=== PATIENT | male | born 1965 | race African-American/Black ===

== ENCOUNTER 2019-05-01 08:47 | Emergency (ER) | payer SELFPAY ==
--- NOTE | 2019-05-01 09:04 | ER Document Report ---
ED General - General Chief Complaint: Low Blood Pressure Stated Complaint: BLOOD PRESSURE ISSUES Time Seen by Provider: 05/01/19 09:01 TRAVEL OUTSIDE OF THE [place] IN LAST 30 DAYS: No - HPI Notes: 54-year-old male with no pertinent mass medical history to the emergency department with complaints of an episode of dizziness, chest pain and near syncope yesterday. Patient states that he was with his family sightseeing in a car without air conditioning. He states he started to feel poorly and feel weak like he was going to pass out. Also reports during this episode that he had left-sided nonradiating chest pain that felt like acid reflux and also felt like he had a sore throat. Family called the medics and they came and an EKG and did orthostatics on him the patient states that his blood pressure got very low when he stood up and reports that it was 150 systolic. Medics encouraged patient to come to the hospital for further evaluation but patient declined. States after laying down for most of the day, he felt much better. States he woke up this morning and was getting ready to go to work and his son encouraged him to get checked out. States that he has no symptoms today. He denies any history of diabetes, hypertension, hyperlipidemia, heart attack, arrhythmias in himself. He states that he does not see a doctor. States there is a strong family history of hypertension in his family. Denies any leg swelling, recent extended travel, history of clots in his legs, recent immobilization, recent surgery, or any known familial coagulopathies. Past Medical History - General Information source: Patient, Relative - Social History Smoking Status: Never Smoker Frequency of alcohol use: Social Drug Abuse: None Lives with: Family Family History: Hypertension Review of Systems - Review of Systems Constitutional: denies: Chills, Fever EENT: No symptoms reported Cardiovascular: Chest pain, Dizziness, Lightheaded. denies: Palpitations, Heart racing, Orthopnea, Dyspnea, Syncope, Edema, Paroxysmal Nocturnal Dysp Respiratory: denies: Cough, Short of breath Gastrointestinal: denies: Abdominal pain, Diarrhea, Nausea Genitourinary: No symptoms reported Musculoskeletal: No symptoms reported Skin: No symptoms reported Hematologic/Lymphatic: No symptoms reported Neurological/Psychological: No symptoms reported -: Yes All other systems reviewed and negative Physical Exam - Vital signs Vitals: Temp Pulse Resp BP Pulse Ox 97.6 F 50 L 16 182/95 H 100 05/01/19 08:53 05/01/19 08:53 05/01/19 08:53 05/01/19 08:53 05/01/19 08:53 Interpretation: Bradycardic - General General appearance: Appears well, Alert - HEENT Head: Normocephalic, Atraumatic Eyes: Normal Pupils: PERRL - Respiratory Respiratory status: No respiratory distress Chest status: Nontender Breath sounds: Normal Chest palpation: Normal - Cardiovascular Rhythm: Regular Heart sounds: Normal auscultation Murmur: No - Abdominal Inspection: Normal Distension: No distension Bowel sounds: Normal Tenderness: Nontender Organomegaly: No organomegaly - Back Back: Normal, Nontender - Extremities General upper extremity: Normal inspection, Nontender, Normal color, Normal ROM, Normal temperature General lower extremity: Normal inspection, Nontender, Normal color, Normal ROM, Normal temperature, Normal weight bearing. No: Benson's sign - Neurological Neuro grossly intact: Yes Cognition: Normal Orientation: AAOx4 Sujata Coma Scale Eye Opening: Spontaneous [place] Coma Scale Verbal: Oriented [place] Coma Scale Motor: Obeys Commands Sujata Coma Scale Total: 15 Speech: Normal Cranial nerves: Normal. 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 Sensory: Normal - Psychological Associated symptoms: Normal affect, Normal mood - Skin Skin Temperature: Warm Skin Moisture: Dry Skin Color: Normal Course - Vital Signs Vital signs: Temp Pulse Resp BP Pulse Ox 97.6 F 50 L 16 182/95 H 100 05/01/19 08:53 05/01/19 08:53 05/01/19 08:53 05/01/19 08:53 05/01/19 08:53 - Laboratory Result Diagrams: 05/01/19 09:15 05/01/19 09:15 Laboratory results interpreted by me: 05/01/19 05/01/19 05/01/19 09:15 09:15 10:25 RBC 4.31 L Chloride 108 H Creatinine 1.28 H Est GFR (Non-Af Amer) 59 L Alkaline Phosphatase 35 L Creatine Kinase 225 H Urine Protein 30 H - EKG Interpretation by Me EKG shows normal: Sinus rhythm Rate: Bradycardia - HR of 44 Rhythm: NSR When compared to previous EKG there are: Previous EKG unavailable Additional EKG results interpreted by me: 05/01/19 09:29 No STEMI, no ST changes. Noted bradycardia. No prior HR or EKGs for comparison - Transfer of Care Notes: 05/01/19 11:02 Impression: Dizziness, elevated blood pressure, bradycardia. Patient with episode of dizziness yesterday and is completely asymptomatic today. Is not orthostatic. Most of his labs are very reassuring. Troponin is negative, electrolytes are within normal limits. EKG with no acute ischemic changes but is noted to be at 44 bpm. Patient does not know if he has had a history of low heart rate. He looks well today but we will have him follow with primary care and cardiology about blood pressure and bradycardia. I having encouraged him to return immediately if he has another episode like yesterday. He agrees with the plan. Discharge - Discharge Clinical Impression: Dizziness, Elevated blood pressure reading, Bradycardia Condition: Good Disposition: HOME, SELF-CARE Instructions: Dizziness ([facility]), High Blood Pressure ([facility]), [facility]aring [facility] Additional Instructions: FOLLOW UP WITH PRIMARY CARE AND WITH CARDIOLOGY WITHOUT FAIL THIS UPCOMING WEEK. RETURN IMMEDIATELY IF YOU HAVE ANOTHER EPISODE LIKE YESTERDAY. PUSH FLUIDS AND GET PLENTY OF REST. CARDIOLOGY FOLLOW UP: DR. JOMAR BECK [phone] [place] [address], [phone] Forms: Elevated Blood Pressure, Return to Work Referrals: JOMAR BECK MD [ACTIVE STAFF] - Follow up in 3-5 days [facility] [Provider Group] - Follow up in 3-5 days
[2019-05-01] MEDS ORDERED: NORMAL SALINE 1000 ML 1,000 ML IV ONE (09:22)
[2019-05-01 09:29] LABS: ABSOLUTE BASOPHILS # (AUTO) 0.1 10^3/uL (0.0-0.2); ABSOLUTE EOSINOPHILS # (AUTO) 0.3 10^3/uL (0.0-0.6); ABSOLUTE LYMPHOCYTES (AUTO) 2.5 10^3/uL (0.5-4.7); ABSOLUTE MONOCYTES (AUTO) 0.6 10^3/uL (0.1-1.4); ABSOLUTE NEUT (AUTO) 3.7 10^3/uL (1.7-8.2); EOSINOPHILS % (AUTO) 3.6 % (0-6); LYMPHOCYTES % (AUTO) 34.9 % (13-45); MEAN CORPUSCULAR HEMOGLOBIN 32.6 pg (27.0-33.4); MEAN CORPUSCULAR HGB CONC 33.5 g/dL (32.0-36.0); MEAN CORPUSCULAR VOLUME 97 fl (80-97); MONOCYTES % (AUTO) 8.8 % (3-13); PLATELET COUNT 263 10^3/uL (150-450); RED BLOOD COUNT 4.31 10^6/uL (4.35-5.55); SEGMENTED NEUTROPHILS % (AUTO) 51.7 % (42-78); TOTAL CELLS COUNTED % (AUTO) 100 %; WHITE BLOOD COUNT 7.1 10^3/uL (4.0-10.5)
[2019-05-01 09:47] LABS: ALANINE AMINOTRANSFERASE 26 U/L (21-72); ALBUMIN 4.4 g/dL (3.5-5.0); ALKALINE PHOSPHATASE 35 U/L (38-126); ANION GAP 6 (5-19); ASPARTATE AMINO TRANSFERASE 27 U/L (17-59); BILIRUBIN,DIRECT 0.2 mg/dL (0.0-0.4); BILIRUBIN,TOTAL 0.6 mg/dL (0.2-1.3); BLOOD UREA NITROGEN 20 mg/dL (7-20); CALCIUM 9.5 mg/dL (8.4-10.2); CARBON DIOXIDE 27 mmol/L (22-30); CHLORIDE 108 mmol/L (98-107); CREATINE KINASE 225 U/L (55-170); GLUCOSE 95 mg/dL (75-110); POTASSIUM 4.4 mmol/L (3.6-5.0); SODIUM 141.2 mmol/L (137-145); TOTAL PROTEIN 7.4 g/dL (6.3-8.2)
--- NOTE | 2019-05-01 10:11 | RADIOLOGY REPORT (SQ) ---
EXAM DESCRIPTION: CHEST 2 VIEWS COMPLETED DATE/TIME: 05/01/2019 9:57 am REASON FOR STUDY: chest pain, near syncope COMPARISON: None. EXAM PARAMETERS: NUMBER OF VIEWS: two views TECHNIQUE: Digital Frontal and Lateral radiographic views of the chest acquired. RADIATION DOSE: NA LIMITATIONS: none FINDINGS: LUNGS AND PLEURA: No opacities, masses or pneumothorax. No pleural effusion. MEDIASTINUM AND HILAR STRUCTURES: No masses or contour abnormalities. HEART AND VASCULAR STRUCTURES: Heart normal size. No evidence for failure. BONES: No acute findings. HARDWARE: None in the chest. OTHER: No other significant finding. IMPRESSION: NO ACUTE RADIOGRAPHIC FINDING IN THE CHEST. TECHNICAL DOCUMENTATION: JOB ID: [id number] [employer]- All Rights Reserved Reading location - IP/workstation name: [email or web address]
[2019-05-01 10:40] LABS: APPEARANCE,URINE CLEAR; BILIRUBIN,URINE NEGATIVE (NEGATIVE); COLOR,URINE YELLOW; GLUCOSE, URINE NEGATIVE (NEGATIVE); KETONES,URINE NEGATIVE (NEGATIVE); LEUKOCYTE ESTERASE,URINE NEGATIVE (NEGATIVE); NITRITE,URINE NEGATIVE (NEGATIVE); PROTEIN,URINE 30 mg/dL (NEGATIVE); URINE SPECIFIC GRAVITY 1.013; UROBILINOGEN,URINE NEGATIVE mg/dL (<2.0)
[2019-05-01 10:59] LABS: URINE AMPHETAMINES SCREEN NEGATIVE; URINE BARBITURATES SCREEN NEGATIVE; URINE BENZODIAZEPINES SCREEN NEGATIVE; URINE COCAINE SCREEN NEGATIVE; URINE MARIJUANA (THC) SCREEN UNCONFIRMED POSITIVE; URINE METHADONE SCREEN NEGATIVE; URINE PHENCYCLIDINE SCREEN NEGATIVE
[2019-05-01 11:43] VITALS: BP 166/91
--- NOTE | 2019-05-02 00:13 | EKG REPORT ---
SEVERITY:- OTHERWISE NORMAL ECG - SINUS BRADYCARDIA : Confirmed by: Jessica Castro 02-May-2019 00:12:35
== END 2019-05-01 11:42 | disposition home or self-care (01) ==
LOC: ER 08:47
DX: R42 Dizziness and giddiness (principal); R03.0 Elevated blood-pressure reading, without diagnosis of hypertension; R00.1 Bradycardia, unspecified; R07.9 Chest pain, unspecified; R53.1 Weakness
CPT/HCPCS: 93005; 99285; 96360; 96361; 36415; 82550; 83735; 85025; 80053; 81001; 84484; 80307; 71046; 93010; J7030

== ENCOUNTER 2019-05-07 21:19 | Inpatient (IN) | payer SELFPAY ==
[2019-05-07] MEDS ORDERED: NICARDIPINE HCL RTU, ISO-OS 20 MG/200 ML RTUINJ IV PRN (21:50)
--- NOTE | 2019-05-07 21:52 | ER Document Report ---
ED Neuro Symptoms/Deficit - General Chief Complaint: S/S of Possible Stroke Stated Complaint: POSSIBLE LEFT ARM NUMBNESS Time Seen by Provider: 05/07/19 21:48 Mode of Arrival: Ambulatory Information source: Patient TRAVEL OUTSIDE OF THE [place] IN LAST 30 DAYS: No - HPI Patient complains to provider of: Paresthesia, Weakness Onset: Other - 4 PM today Awoke with symptoms: No Duration: Better Quality of pain: No pain Severity: None Pain Level: Denies Context: None Loss of consciousness: No loss of consciousness Baseline Cognitive: Alert, oriented X 3 Baseline Gait: Walks w/o assistance Pre-existing weakness: Upper extremity Patient Orientation: Person, Place, Time New weakness: LUE Altered sensation: LUE Vision problem/glaucoma: No Associated symptoms: None Similar symptoms previously: No Recently seen / treated by doctor: Yes - Related Data Allergies/Adverse Reactions: No Known Allergies Allergy (Unverified 05/07/19 23:08) Past Medical History - Social History Smoking Status: Unknown if Ever Smoked Family History: Hypertension Renal/ Medical History: Denies: Hx Peritoneal Dialysis Review of Systems - Review of Systems Constitutional: No symptoms reported EENT: No symptoms reported Cardiovascular: No symptoms reported Respiratory: No symptoms reported Gastrointestinal: No symptoms reported Genitourinary: No symptoms reported Male Genitourinary: No symptoms reported Musculoskeletal: No symptoms reported Skin: No symptoms reported Hematologic/Lymphatic: No symptoms reported Neurological/Psychological: Weakness - Left upper extremity numbness and weakness of sudden onset., Numbness -: Yes All other systems reviewed and negative Physical Exam - Vital signs Vitals: Resp Pulse Ox 20 98 05/07/19 21:35 05/07/19 21:35 Interpretation: Normal - General General appearance: Appears well, Alert - HEENT Head: Normocephalic, Atraumatic Eyes: Normal Pupils: PERRL - Respiratory Respiratory status: No respiratory distress Chest status: Nontender Breath sounds: Normal Chest palpation: Normal - Cardiovascular Rhythm: Regular Heart sounds: Normal auscultation Murmur: No - Abdominal Inspection: Normal Distension: No distension Bowel sounds: Normal Tenderness: Nontender Organomegaly: No organomegaly - Back Back: Normal, Nontender - Extremities General upper extremity: Normal inspection, Nontender, Normal color, Normal ROM, Normal temperature General lower extremity: Normal inspection, Nontender, Normal color, Normal ROM, Normal temperature, Normal weight bearing. No: Benson's sign - Neurological Neuro grossly intact: Yes - NIHSS is zero. 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 No: Pronator drift, Weakness Sensory: Normal Notes: NIHSS = 0. - Psychological Associated symptoms: Normal affect, Normal mood - Skin Skin Temperature: Warm Skin Moisture: Dry Skin Color: Normal Course - Vital Signs Vital signs: Temp Pulse Resp BP Pulse Ox 97.5 F 53 L 16 148/91 H 98 05/08/19 04:15 05/08/19 04:15 05/08/19 04:15 05/08/19 04:15 05/08/19 04:15 - Laboratory Result Diagrams: 05/07/19 21:55 05/07/19 21:55 Laboratory results interpreted by me: 05/07/19 05/07/19 21:55 21:55 RBC 4.03 L Hgb 13.3 L BUN 21 H Creatinine 1.39 H Est GFR (Non-Af Amer) 53 L Glucose 69 L Alkaline Phosphatase 30 L Creatine Kinase 440 H - Diagnostic Test Radiology reviewed: Reports reviewed Radiology results interpreted by me: 05/07/19 23:[address] scan and chest x-ray were negative. - EKG Interpretation by Me EKG shows normal: Sinus rhythm Rate: Normal Rhythm: NSR When compared to previous EKG there are: Previous EKG unavailable Additional EKG results interpreted by me: 05/07/19 23:[address] changes no STEMI. Q waves are the inferior leads. - Transfer of Care Notes: 05/07/19 23:02 Patient will be admitted by Dr. Flores to the hospitalist on-call for further evaluation and management. Critical Care Note - Critical Care Note Total time excluding time spent on procedures (mins): 45 Comments: Time was spent assessing patient, multiple evaluations and consults. Also time was spent reviewing labs and imaging studies. Discharge - Discharge Clinical Impression: TIA (transient ischemic attack), ISAMAR (acute kidney injury) Hypertension Qualifiers: Hypertension type: unspecified Qualified Code(s): I10 - Essential (primary) hypertension Condition: Stable Disposition: ADMITTED INPATIENT Admitting Provider: Aj (Hospitalist) Unit Admitted: IMCU
[2019-05-07 22:03] LABS: ABSOLUTE BASOPHILS # (AUTO) 0.1 10^3/uL (0.0-0.2); ABSOLUTE EOSINOPHILS # (AUTO) 0.3 10^3/uL (0.0-0.6); ABSOLUTE LYMPHOCYTES (AUTO) 3.1 10^3/uL (0.5-4.7); ABSOLUTE MONOCYTES (AUTO) 0.8 10^3/uL (0.1-1.4); ABSOLUTE NEUT (AUTO) 3.8 10^3/uL (1.7-8.2); BASOPHILS % (AUTO) 0.7 % (0-2); EOSINOPHILS % (AUTO) 4.1 % (0-6); HEMATOCRIT 39.1 % (37.9-51.0); HEMOGLOBIN 13.3 g/dL (13.5-17.0); LYMPHOCYTES % (AUTO) 38.6 % (13-45); MEAN CORPUSCULAR VOLUME 97 fl (80-97); PLATELET COUNT 252 10^3/uL (150-450); RED BLOOD COUNT 4.03 10^6/uL (4.35-5.55); SEGMENTED NEUTROPHILS % (AUTO) 46.6 % (42-78); TOTAL CELLS COUNTED % (AUTO) 100 %; WHITE BLOOD COUNT 8.1 10^3/uL (4.0-10.5)
[2019-05-07 22:12] LABS: INTERNATIONAL RATION (INR) 0.97; PROTHROMBIN TIME 12.9 SEC (11.4-15.4)
[2019-05-07 22:13] LABS: PARTIAL THROMBOPLASTIN TIME 30.2 SEC (23.5-35.8)
--- NOTE | 2019-05-07 22:19 | RADIOLOGY REPORT (SQ) ---
EXAM DESCRIPTION: CT HEAD WITHOUT IV CONTRAST COMPLETED DATE/TME: 05/07/2019 00:00 CLINICAL HISTORY: 54 years, Male, left arm numbness COMPARISON: None. TECHNIQUE: Noncontrast CT of the head was performed. Coronal and sagittal reformations were created. Images stored on PACS. All CT scanners at this facility use dose modulation, iterative reconstruction, and/or weight based dosing when appropriate to reduce radiation dose to as low as reasonably achievable (ALARA). [facility]: Dose Right [facility]: CareDose [facility]: Dose Right [facility]: Teradose 4D [facility]: [employer] Technologies LIMITATIONS: None. FINDINGS: Brain parenchyma is normal in attenuation. Sella is partially empty. No acute intracranial hemorrhage, mass effect, or extra-axial fluid is seen. The ventricles, sulci, and basilar cisterns are normal in size and configuration. Globes and orbits are normal. Minimal rounded opacity is noted about the bilateral maxillary antra, indicating mucous retention cysts and/or inflammatory polyps. Paranasal sinuses and mastoid air cells are otherwise clear. There are no depressed skull fractures. IMPRESSION: No acute intracranial abnormality. TECHNICAL DOCUMENTATION: Quality ID # 436: Final reports with documentation of one or more dose reduction techniques (e.g., Automated exposure control, adjustment of the mA and/or kV according to patient size, use of iterative reconstruction technique) copyright 2011 [employer] All Rights Reserved
[2019-05-07 22:22] LABS: ALANINE AMINOTRANSFERASE 30 U/L (21-72); ALBUMIN 4.5 g/dL (3.5-5.0); ALKALINE PHOSPHATASE 30 U/L (38-126); ANION GAP 10 (5-19); ASPARTATE AMINO TRANSFERASE 35 U/L (17-59); BILIRUBIN,DIRECT 0.3 mg/dL (0.0-0.4); BILIRUBIN,TOTAL 0.8 mg/dL (0.2-1.3); BLOOD UREA NITROGEN 21 mg/dL (7-20); CALCIUM 9.7 mg/dL (8.4-10.2); CARBON DIOXIDE 24 mmol/L (22-30); CHLORIDE 107 mmol/L (98-107); CREATINE KINASE 440 U/L (55-170); POTASSIUM 4.5 mmol/L (3.6-5.0); SODIUM 140.6 mmol/L (137-145); TOTAL PROTEIN 7.5 g/dL (6.3-8.2)
[2019-05-07 22:25] LABS: GLUCOSE 69 mg/dL (75-110)
[2019-05-07 22:34] LABS: CREATINE KINASE MB 3.54 ng/mL (<4.55); TROPONIN I < 0.012 ng/mL
--- NOTE | 2019-05-07 22:36 | RADIOLOGY REPORT (SQ) ---
EXAM DESCRIPTION: [employer]: XR CHEST 1 VIEW CLINICAL HISTORY: 54 years Male, Left arm numbness and weakness COMPARISON: 05/01/2019 FINDINGS: Lungs are clear, with no focal infiltrate, pneumothorax, or pleural effusion. Mediastinum is within normal limits for this positioning. Bony structures are unremarkable. IMPRESSION: 1. No acute pulmonary findings.
[2019-05-07] MEDS ORDERED: NORMAL SALINE 1000 ML 1,000 ML IV ONE ×2 (22:46→23:43)
[2019-05-07] MEDS ORDERED: AMLODIPINE BESYLATE 5 MG TABLET PO ONE (22:53)
[2019-05-07] MEDS ORDERED: ASPIRIN 325 MG TABLET, ENT COATED PO ONE (23:04)
[2019-05-07] MEDS ORDERED: ASPIRIN 325 MG TABLET PO ONE (23:15)
[2019-05-07] MEDS ORDERED: ATORVASTATIN CALCIUM 80 MG TABLET PO ONE (23:15)
[2019-05-07] MEDS ORDERED: ACETAMINOPHEN 325 MG TABLET PO PRN (23:38)
[2019-05-07] MEDS ORDERED: MAGNESIUM HYDROXIDE SUSP 30 ML UDCUP PO PRN (23:38)
[2019-05-07] MEDS ORDERED: DOCUSATE SODIUM 100 MG CAPSULE PO PRN (23:38)
[2019-05-08 03:05] LABS: URINE AMPHETAMINES SCREEN NEGATIVE; URINE BARBITURATES SCREEN NEGATIVE; URINE BENZODIAZEPINES SCREEN NEGATIVE; URINE COCAINE SCREEN NEGATIVE; URINE MARIJUANA (THC) SCREEN UNCONFIRMED POSITIVE; URINE METHADONE SCREEN NEGATIVE; URINE PHENCYCLIDINE SCREEN NEGATIVE
[2019-05-08 06:15] LABS: CHOLESTEROL 228.15 mg/dL (0-200); TRIGLYCERIDES 93 mg/dL (<150)
[2019-05-08 06:26] LABS: DIRECT LDL 147 mg/dL (<100)
--- NOTE | 2019-05-08 06:38 | PDOC H&P ---
History of Present Illness Admission Date/PCP: 05/07/19 23:13 Patient complains of: Left hand weakness History of Present Illness: EZEKIEL WISE is a 54 year old male with a past medical history of hypertension without medication presents with acute onset of left hand weakness starting 90 minutes prior to arrival. Patient is greatly improved from onset wi th plus 4 out of 5 strength regained. He admits headache, palpitations, denies nausea vomiting blurred vision confusion or additional focal symptoms. He denies recent medications and is otherwise been well. He denies previous episode. His work-up was unremarkable and is referred to the hospitalist for admission. Past Medical History Cardiac Medical History: Reports: Hypertension Past Surgical History Past Surgical History: Reports: None Social History Information Source: Patient Lives with: Family Smoking Status: Unknown if Ever Smoked Frequency of Alcohol Use: None Hx Recreational Drug Use: No Drugs: None - Advance Directive Resuscitation Status: Full Code Family History Family History: CVA, Hypertension Parental Family History Reviewed: Yes Children Family History Reviewed: Yes Sibling(s) Family History Reviewed.: Yes Medication/Allergy Allergies/Adverse Reactions: No Known Allergies Allergy (Unverified 05/07/19 23:08) Review of Systems Constitutional: ABSENT: chills, fever(s), headache(s), weight gain, weight loss Eyes: ABSENT: visual disturbances Ears: ABSENT: hearing changes Cardiovascular: PRESENT: palpitations. ABSENT: chest pain, dyspnea on exertion, edema, orthropnea Respiratory: ABSENT: cough, hemoptysis Gastrointestinal: ABSENT: abdominal pain, constipation, diarrhea, hematemesis, hematochezia, nausea, vomiting Genitourinary: ABSENT: dysuria, hematuria Musculoskeletal: ABSENT: joint swelling Integumentary: ABSENT: rash, wounds Neurological: ABSENT: abnormal gait, abnormal speech, confusion, dizziness, focal weakness, syncope Psychiatric: ABSENT: anxiety, depression, homidical ideation, suicidal ideation Endocrine: ABSENT: cold intolerance, heat intolerance, polydipsia, polyuria Hematologic/Lymphatic: ABSENT: easy bleeding, easy bruising Physical Exam Vital Signs: Temp Pulse Resp BP Pulse Ox 97.5 F 53 L 16 148/91 H 98 05/08/19 04:15 05/08/19 04:15 05/08/19 04:15 05/08/19 04:15 05/08/19 04:15 Intake & Output 0705/07/19 05/08/19 11:59 11:59 11:59 Intake Total 1999 Balance 1999 Weight 93.6 kg General appearance: PRESENT: no acute distress, well-developed, well-nourished Head exam: PRESENT: atraumatic, normocephalic Eye exam: PRESENT: conjunctiva pink, EOMI, PERRLA. ABSENT: scleral icterus Ear exam: PRESENT: normal external ear exam Mouth exam: PRESENT: moist, tongue midline Neck exam: ABSENT: carotid bruit, JVD, lymphadenopathy, thyromegaly Respiratory exam: PRESENT: clear to auscultation samantha. ABSENT: rales, rhonchi, wheezes Cardiovascular exam: PRESENT: RRR. ABSENT: diastolic murmur, rubs, systolic murmur Pulses: PRESENT: normal dorsalis pedis pul Vascular exam: PRESENT: normal capillary refill GI/Abdominal exam: PRESENT: normal bowel sounds, soft. ABSENT: distended, guarding, mass, organolmegaly, rebound, tenderness Rectal exam: PRESENT: deferred Extremities exam: PRESENT: full ROM. ABSENT: calf tenderness, clubbing, pedal edema Neurological exam: PRESENT: alert, awake, oriented to person, oriented to place, oriented to time, oriented to situation, CN II-XII grossly intact, other - 4+ out of 5 strength to the left hand. ABSENT: motor sensory deficit Psychiatric exam: PRESENT: appropriate affect, normal mood. ABSENT: homicidal ideation, suicidal ideation Skin exam: PRESENT: dry, intact, warm. ABSENT: cyanosis, rash Results Laboratory Results: 05/07/19 21:55 05/07/19 21:55 05/07/19 05/07/19 05/07/19 21:55 21:55 21:55 WBC 8.1 RBC 4.03 L Hgb 13.3 L Hct 39.1 MCV 97 MCH 33.0 MCHC 34.0 RDW 14.0 Plt Count 252 Seg Neutrophils % 46.6 Lymphocytes % 38.6 Monocytes % 10.0 Eosinophils % 4.1 Basophils % 0.7 Absolute Neutrophils 3.8 Absolute Lymphocytes 3.1 Absolute Monocytes 0.8 Absolute Eosinophils 0.3 Absolute Basophils 0.1 Sodium 140.6 Potassium 4.5 Chloride 107 Carbon Dioxide 24 Anion Gap 10 BUN 21 H Creatinine 1.39 H Est GFR ( Amer) > 60 Est GFR (Non-Af Amer) 53 L Glucose 69 L Calcium 9.7 Total Bilirubin 0.8 AST 35 ALT 30 Alkaline Phosphatase 30 L Total Protein 7.5 Albumin 4.5 Triglycerides Cholesterol LDL Cholesterol Direct VLDL Cholesterol HDL Cholesterol TSH 2.24 05/08/19 05:47 WBC RBC Hgb Hct MCV MCH MCHC RDW Plt Count Seg Neutrophils % Lymphocytes % Monocytes % Eosinophils % Basophils % Absolute Neutrophils Absolute Lymphocytes Absolute Monocytes Absolute Eosinophils Absolute Basophils Sodium Potassium Chloride Carbon Dioxide Anion Gap BUN Creatinine Est GFR ( Amer) Est GFR (Non-Af Amer) Glucose Calcium Total Bilirubin AST ALT Alkaline Phosphatase Total Protein Albumin Triglycerides 93 Cholesterol 228.15 H LDL Cholesterol Direct 147 H VLDL Cholesterol 19.0 HDL Cholesterol 55 TSH 05/07/19 05/07/19 21:55 21:55 Creatine Kinase 440 H CK-MB (CK-2) 3.54 Troponin I < 0.012 Impressions: Head CT 05/07/19 00:00 IMPRESSION: No acute intracranial abnormality. TECHNICAL DOCUMENTATION: Quality ID # 436: Final reports with documentation of one or more dose reduction techniques (e.g., Automated exposure control, adjustment of the mA and/or kV according to patient size, use of iterative reconstruction technique) copyright 2011 [employer]- All Rights Reserved Chest X-Ray 05/07/19 21:49 IMPRESSION: 1. No acute pulmonary findings. Assessment and Plan - Diagnosis (1) TIA (transient ischemic attack) Is this a current diagnosis for this admission?: Yes Plan: CVA care set initiated, follow-up MRI, carotid Doppler, 2D echo given palpitations, lipid profile TSH. Continue aspirin and statin physical therapy ordered (2) Hypertension Qualifiers: Hypertension type: unspecified Qualified Code(s): I10 - Essential (primary) hypertension Is this a current diagnosis for this admission?: Yes Plan: Blood pressure medications on hold for permissive hypertension, follow-up TSH (3) Bradycardia Is this a current diagnosis for this admission?: Yes Plan: Patient gives history of palpitations, concern for sick sinus syndrome, follow- up cardiac monitoring, 2D echo and TSH - Time Time Spent with patient: 35 or more minutes - Inpatient Certification Medical Necessity: Need Close Monitoring Due to Risk of Patient Decompensation
[2019-05-08] MEDS: HEPARIN SOD (PORCINE) 5,000 UNIT/ML 1 ML SYRINGE SUBCUT SCH ×2 (06:41→13:03)
--- NOTE | 2019-05-08 09:58 | RADIOLOGY REPORT (SQ) ---
EXAM DESCRIPTION: MRI HEAD WITHOUT COMPLETED DATE/TIME: 05/08/2019 9:27 am REASON FOR STUDY: left hand weakness COMPARISON: CT brain 05/07/2019 TECHNIQUE: Multiplanar imaging includes non-contrasted T1, T2, FLAIR, and diffusion with ADC map seq uences. Images stored on PACS. LIMITATIONS: None. FINDINGS: ANATOMY: No developmental anomalies. Normal vascular flow voids. Pituitary fossa normal. CSF SPACES: Normal in size and contour. No hemorrhage. CEREBRUM: Punctate focus of restricted diffusion right posterior frontal cortex axial image 21 from a cute nonhemorrhagic infarct. Remainder of the brain parenchyma is unremarkable. Report called to Dr. Campoverde, 0948 hours 05/08/2019. POSTERIOR FOSSA: No signal alteration. No hemorrhage. No edema, masses or mass effect. Internal gloria tory canals, cerebello-pontine angles, mastoids normal. DIFFUSION IMAGING: Positive for punctate focus of restricted diffusion in the right posterior frontal cortex, axial image 21. ORBITS: No masses. Globes normal. PARANASAL SINUSES: No fluid levels. Mucosa normal. OTHER: No other significant finding. 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 EVIDENCE OF ACUTE STROKE: YES. TECHNICAL DOCUMENTATION: JOB ID: [id number] [employer]- All Rights Reserved Reading location - IP/workstation name: [email or web address]
[2019-05-08] MEDS ORDERED: ASPIRIN 325 MG TABLET PO SCH (10:00)
[2019-05-08] MEDS ORDERED: AMLODIPINE BESYLATE 5 MG TABLET PO SCH (12:30)
--- NOTE | 2019-05-08 15:07 | RADIOLOGY REPORT (SQ) ---
EXAM DESCRIPTION: CAROTID DOPPLER COMPLETED DATE/TIME: 05/08/2019 2:49 pm REASON FOR STUDY: stroke COMPARISON: CT brain 05/07/2019 TECHNIQUE: Grayscale ultrasound, Doppler velocity and spectra, and color Doppler images acquired of the extra-cranial carotid and vertebral arteries. Images stored on PACS. LIMITATIONS: None. FINDINGS: RIGHT CAROTID CCA Velocities: Within normal limits. Right common carotid artery peak systolic velocity 1.2 m/sec. ICA Velocities Peak systolic 0.68 m/s. End diastolic 0.21 m/s. Proximal ICA/CCA peak systolic ratio 1.1. Spectra normal. No significant plaque. LEFT CAROTID CCA Velocities: Within normal limits. Left common carotid artery peak systolic velocity 1.2 m/sec. ICA Velocities Peak systolic 0.93 m/s. End diastolic 0.41 m/s. Proximal ICA/CCA peak systolic ratio 1.1. Spectra normal. No significant plaque. VERTEBRAL ARTERIES: Antegrade flow. Normal waveforms. SUBCLAVIAN ARTERIES: Not evaluated OTHER: No other significant finding. IMPRESSION: NO HEMODYNAMICALLY SIGNIFICANT STENOSIS. COMMENT: Quality ID #[id number]: Velocity criteria are extrapolated from the diameter data as defined by t he Society of Radiologists in Ultrasound Consensus Conference. Radiology 2003: 229; 340-346. TECHNICAL DOCUMENTATION: JOB ID: [id number] [employer]- All Rights Reserved Reading location - IP/workstation name: [email or web address]
[2019-05-08 15:24] VITALS: BP 138/77
--- NOTE | 2019-05-08 17:40 | PDOC DISCHARGE SUMMARY ---
General - Admit/Disc Date/PCP Admission Date/Primary Care Provider: 05/07/19 23:13 Discharge Date: 05/08/19 - Discharge Diagnosis (1) Stroke Is this a current diagnosis for this admission?: Yes (2) Hypertension Is this a current diagnosis for this admission?: Yes - Additional Information Resuscitation Status: Full Code Discharge Diet: Regular Discharge Activity: Activity As Tolerated Prescriptions: Amlodipine Besylate [Norvasc 5 mg Tablet] 5 mg PO DAILY #30 tablet Atorvastatin Calcium [Lipitor 80 mg Tablet] 80 mg PO QHS #30 tablet Home Medications: Amlodipine Besylate [Norvasc 5 mg Tablet] 5 mg PO DAILY #30 tablet 05/08/19 Atorvastatin Calcium [Lipitor 80 mg Tablet] 80 mg PO QHS #30 tablet 05/08/19 History of Present Illness History of Present Illness: EZEKIEL WISE is a 54 year old male Hospital Course Hospital Course: after admission he had MRI brain which showed right posterior frontal infarct. this explains his left hand numbness/tingling and weakness. he had U/S carotid which did not show any acute changes. he had ECHO completed- final results pending- but i did speak with photography spotter Dr Ruelas- states the study is poor and limited. spoke with patient about staying and possible getting PERICO but family and patients insisting on discharge. discussed risks and benefits of discharge- they verbalized understanding- including another stroke and even . discussed about following up with cardiology and PCP- states he already has a name of a photography spotter from her ER visit last week. advised to start taking Aspirin 81mg and statin 80mg. his BP was elevated on admission- likely he has HTN- started him on Norvasc 5mg and his BP was better but still slightly elevated- advised to talk to his PCP a bout titrating up advised to quit smoking cigars Physical Exam Vital Signs: Temp Pulse Resp BP Pulse Ox 97.8 F 53 L 16 138/77 H 99 05/08/19 15:20 05/08/19 15:20 05/08/19 15:20 05/08/19 15:20 05/08/19 15:20 Intake & Output 05/07/19 05/08/19 05/09/19 06:59 06:59 06:59 Intake Total 1999 240 Balance 1999 240 Weight 205 lb 14.588 oz General appearance: PRESENT: no acute distress Head exam: PRESENT: atraumatic, normocephalic Eye exam: PRESENT: EOMI. ABSENT: scleral icterus Ear exam: PRESENT: normal external ear exam Mouth exam: PRESENT: moist, tongue midline Respiratory exam: PRESENT: clear to auscultation samantha, symmetrical Cardiovascular exam: PRESENT: +S1, +S2 GI/Abdominal exam: PRESENT: normal bowel sounds, soft. ABSENT: tenderness Extremities exam: ABSENT: pedal edema Neurological exam: PRESENT: alert, awake, oriented to person, oriented to place, oriented to time, CN II-XII grossly intact, other - left hand mild decreased strength compared to right- otherwise sensation intact. finger to nose intact. LE no changes Skin exam: PRESENT: dry, warm Results Laboratory Results: 05/07/19 21:55 05/07/19 21:55 05/07/19 05/07/19 05/07/19 21:55 21:55 21:55 WBC 8.1 RBC 4.03 L Hgb 13.3 L Hct 39.1 MCV 97 MCH 33.0 MCHC 34.0 RDW 14.0 Plt Count 252 Seg Neutrophils % 46.6 Lymphocytes % 38.6 Monocytes % 10.0 Eosinophils % 4.1 Basophils % 0.7 Absolute Neutrophils 3.8 Absolute Lymphocytes 3.1 Absolute Monocytes 0.8 Absolute Eosinophils 0.3 Absolute Basophils 0.1 Sodium 140.6 Potassium 4.5 Chloride 107 Carbon Dioxide 24 Anion Gap 10 BUN 21 H Creatinine 1.39 H Est GFR ( Amer) > 60 Est GFR (Non-Af Amer) 53 L Glucose 69 L Calcium 9.7 Total Bilirubin 0.8 AST 35 ALT 30 Alkaline Phosphatase 30 L Total Protein 7.5 Albumin 4.5 Triglycerides Cholesterol LDL Cholesterol Direct VLDL Cholesterol HDL Cholesterol TSH 2.24 05/08/19 05:47 WBC RBC Hgb Hct MCV MCH MCHC RDW Plt Count Seg Neutrophils % Lymphocytes % Monocytes % Eosinophils % Basophils % Absolute Neutrophils Absolute Lymphocytes Absolute Monocytes Absolute Eosinophils Absolute Basophils Sodium Potassium Chloride Carbon Dioxide Anion Gap BUN Creatinine Est GFR ( Amer) Est GFR (Non-Af Amer) Glucose Calcium Total Bilirubin AST ALT Alkaline Phosphatase Total Protein Albumin Triglycerides 93 Cholesterol 228.15 H LDL Cholesterol Direct 147 H VLDL Cholesterol 19.0 HDL Cholesterol 55 TSH 05/07/19 05/07/19 21:55 21:55 Creatine Kinase 440 H CK-MB (CK-2) 3.54 Troponin I < 0.012 Impressions: Head CT 05/07/19 00:00 IMPRESSION: No acute intracranial abnormality. TECHNICAL DOCUMENTATION: Quality ID # [id number]: Final reports with documentation of one or more dose reduction techniques (e.g., Automated exposure control, adjustment of the mA and/or kV according to patient size, use of iterative reconstruction technique) copyright 2011 [employer]- All Rights Reserved Chest X-Ray 05/07/19 21:49 IMPRESSION: 1. No acute pulmonary findings. Carotid Doppler Study 05/08/19 00:00 IMPRESSION: NO HEMODYNAMICALLY SIGNIFICANT STENOSIS. Head MRI 05/08/19 00:00 IMPRESSION: Positive study for an acute nonhemorrhagic infarct in the right posterior frontal cortex. EVIDENCE OF ACUTE STROKE: YES. Qualifiers - * PATIENT BEING DISCHARGED WITH ANY OF THE FOLLOWING DIAGNOSIS: Stroke VTE patient discharged on overlapping Therapy?: No Stroke Pt being discharged on Anti-thrombolytic therapy?: Yes Stroke Pt being discharged on Anti-coagulation therapy?: Yes Stroke Pt being discharged on Statins?: Yes Acute Heart Failure - Is this a Heart Failure Patient?: No Plan Time Spent: Greater than 30 Minutes
--- NOTE | 2019-05-08 19:20 | EKG REPORT ---
SEVERITY:- BORDERLINE ECG - SINUS RHYTHM BORDERLINE INFERIOR Q WAVES : Confirmed by: Jessica Castro 08-May-2019 19:19:17
[2019-05-08] MEDS ORDERED: ATORVASTATIN CALCIUM 80 MG TABLET PO SCH (22:00)
--- NOTE | 2019-05-09 17:39 | XCELERA REPORT ---
[address] [address] Transthoracic Echocardiogram Report Name: EZEKIEL WISE Age: 54 yrs Gender: Male : 1965 Patient Status: Inpatient Patient Location: [address] [place], [place] [address] Study Date: 05/08/2019 12:14 PM Height: 72 in Weight: 210 lb BSA: 2.2 m2 Procedure: A two-dimensional transthoracic echocardiogram with color flow Doppler was performed. The study was technically difficult with many images being suboptimal in quality. The study was technically limited with all images being suboptimal in quality. Reason For Study: stroke History: CVA. Ordering Physician: ANAM KEE Performed By: Ned Rivers Interpretation Summary There is no obvious cardiac source of embolus noted on this transthoracic echocardiogram. Follow-up with a PERICO is suggested if cardiac source is still suspected. The left ventricle is normal in size. There is normal left ventricular wall thickness. LV EF is 65% Doppler measurements suggest normal left ventricular diastolic function The left ventricular wall motion is normal. There is no thrombus. Cannot assess for ASD ,VSD ,or PFO. The right ventricle is grossly normal size. The right atrium is normal. The left atrial size is normal. There is no evidence of mitral valve prolapse. There is no vegetation seen on the mitral valve. There is no mitral valve stenosis. There is no aortic valve stenosis No aortic regurgitation is present. There is no tricuspid stenosis. No tricuspid regurgitation. There is no pericardial effusion. There is no obvious cardiac source of embolus noted on this transthoracic echocardiogram. Follow-up with a PERICO is suggested if cardiac source is still suspected MMode/2D Measurements & Calculations RVDd: 2.8 cm LVIDd: 5.2 cm FS: 42.2 % Ao root diam: 4.3 cm IVSd: 0.63 cm LVIDs: 3.0 cm EDV(Teich): Ao root area: LVPWd: 0.74 cm 130.6 ml 14.2 cm2 ESV(Teich): 35.5 mlLA dimension: 2.6 cm EF(Teich): 72.9 % LVOT diam: LVLd ap4: 8.9 cm SV(MOD-sp4): 2.4 cm EDV(MOD-sp4): 104.0 ml LVOT area: 143.0 ml LVLs ap4: 7.5 cm 4.6 cm2 ESV(MOD-sp4): 39.0 ml EF(MOD-sp4): 72.7 % Doppler Measurements & Calculations MV E max raine: MV P1/2t max raine: Ao V2 max: LV V1 max P.5 cm/sec 89.2 cm/sec 139.1 cm/sec 7.9 mmHg MV A max raine: MV P1/2t: 44.9 msec Ao max P.8 mmHg LV V1 mean P.3 cm/sec MVA(P1/2t): 4.9 cm2 Ao V2 mean: 3.2 mmHg MV E/A: 1.5 MV dec slope: 90.4 cm/sec LV V1 max: 582.0 cm/sec2 Ao mean P.4 cm/sec MV dec time: 0.13 sec3.9 mmHg LV V1 mean: Ao V2 VTI: 27.7 cm 81.5 cm/sec KADIE(I,D): 4.0 cm2 LV V1 VTI: 24.1 cm KADIE(V,D): 4.6 cm2 SV(LVOT): 110.5 ml PA V2 max: MV P1/2t-pr_phl: 95.0 cm/sec 44.9 msec PA max P.6 mmHg Left Ventricle The left ventricle is normal in size. There is normal left ventricular wall thickness. LV EF is 65%. Doppler measurements suggest normal left ventricular diastolic function. The left ventricular wall motion is normal. There is no thrombus. Cannot assess for ASD ,VSD ,or PFO. Right Ventricle The right ventricle is grossly normal size. Atria The right atrium is normal. The left atrial size is normal. Mitral Valve There is no evidence of mitral valve prolapse. There is no vegetation seen on the mitral valve. There is no mitral valve stenosis. There is no mitral regurgitation noted. Aortic Valve There is no aortic valvular vegetation. There is no aortic valve stenosis. No aortic regurgitation is present. Tricuspid Valve There is no tricuspid stenosis. No tricuspid regurgitation. Unable to calculate RVSP due lack of TR jet. Pulmonic Valve There is no pulmonic valvular stenosis. There is no pulmonic valvular regurgitation. Great Vessels The aortic root is moderately dilated. Effusions There is no pericardial effusion. : ANAM KEE > Brenda, Brittany
== END 2019-05-08 18:19 | disposition home or self-care (01) | DRG 66 ==
LOC: ER 21:19 → EH 23:13 → 3W 05-08 02:09
PROVIDERS: ADMIT Internal Medicine; ATTEND Internal Medicine
DX: I63.9 Cerebral infarction, unspecified (principal); I10 Essential (primary) hypertension; R29.700 NIHSS score 0; F17.290 Nicotine dependence, other tobacco product, uncomplicated
CPT/HCPCS: 36415; 70450; 70551; 71045; 80053; 80061; 80307; 82550; 82553; 82962; 83036; 84443; 84484; 85025; 85610; 85652; 85730; 93005; 93010; 93306; 93880; J1644; J3490; J7030